=== PATIENT | female | born 1965 | race Caucasian/White ===

== ENCOUNTER 2023-07-27 06:01 | Observation (INO) | payer BC ==
--- NOTE | 2023-07-27 06:23 | ED ---
General Adult HPI - General Chief complaint: Chest Pain Stated complaint: SOB, Chest Pain, Headache Time Seen by Provider: 07/27/23 06:06 Source: patient, RN notes reviewed Mode of arrival: ambulatory Limitations: no limitations - History of Present Illness Initial comments: 58-year-old female presents emergency room with complaint of headache, chest claudia n, shortness of breath. Patient states started yesterday afternoon with mild headache folic she had some sinus pressure and congestion she tried some Claritin-D with no relief of her symptoms. Patient states she woke this morning she still has centralized chest pain substernal states that her take a deep breath. She has no prior cardiac or lung disease denies recent fever chills cough nausea vomiting. Denies any leg pain no leg swelling no recent traveling - Related Data Home Medications Medication Instructions Recorded Confirmed Loratadine-Pseudoeph 10-240 mg 1 tab PO DAILY PRN 07/27/23 07/27/23 [Claritin-D 24 Hour] Multivitamins, Thera [Multivitamin 1 tab PO DAILY 07/27/23 07/27/23 (formulary)] Allergies Allergy/AdvReac Type Severity Reaction Status Date / Time Penicillins Allergy Swelling Verified 07/27/23 09:41 Review of Systems ROS Statement: Those systems with pertinent positive or pertinent negative responses have been documented in the HPI. ROS Other: All systems not noted in ROS Statement are negative. Past Medical History Past Medical History: No Reported History History of Any Multi-Drug Resistant Organisms: None Reported Past Surgical History: No Surgical Hx Reported Past Psychological History: No Psychological Hx Reported Smoking Status: Never smoker Past Alcohol Use History: Occasional Past Drug Use History: None Reported General Exam Limitations: no limitations General appearance: alert, in no apparent distress Head exam: Present: atraumatic, normocephalic, normal inspection ENT exam: Present: normal exam, mucous membranes moist Neck exam: Present: normal inspection. Absent: tenderness, meningismus, lymphadenopathy Respiratory exam: Present: normal lung sounds bilaterally. Absent: respiratory distress, wheezes, rales, rhonchi, stridor Cardiovascular Exam: Present: regular rate, normal rhythm, normal heart sounds. Absent: systolic murmur, diastolic murmur, rubs, gallop, clicks GI/Abdominal exam: Present: soft, normal bowel sounds. Absent: distended, tenderness, guarding, rebound, rigid Extremities exam: Present: pedal edema, other (Lower extremity pulses equal bilaterally) Course Vital Signs 07/27/23 07/27/23 07/27/23 06:02 09:00 10:14 Temperature 97.9 F Pulse Rate 58 L 95 87 Respiratory 18 16 14 Rate Blood Pressure 142/70 124/56 135/94 O2 Sat by Pulse 96 99 98 Oximetry 07/27/23 07/27/23 07/27/23 11:23 12:21 13:30 Temperature Pulse Rate 88 89 89 Respiratory 14 16 16 Rate Blood Pressure 140/73 127/65 134/64 O2 Sat by Pulse 97 97 95 Oximetry 07/27/23 07/27/23 07/27/23 14:33 17:24 17:29 Temperature 98.1 F Pulse Rate 90 87 79 Respiratory 18 16 16 Rate Blood Pressure 113/69 134/72 123/71 O2 Sat by Pulse 96 98 98 Oximetry EKG Findings - EKG Comments: EKG Findings:: EKG performed at 6: 08 sinus tachycardia rate of 103 GA 143 QRS 80 QT/QTc 326/386 - EKG Results: EKG: interpreted by FABIANA Medical Decision Making - Medical Decision Making Was pt. sent in by a medical professional or institution (, PA, PROMOTIONS DIRECTOR, urgent care, hospital, or detention...) When possible be specific @ -No Did you speak to anyone other than the patient for history (EMS, parent, family, police, friend...)? What history was obtained from this source @ -No Did you review nursing and triage notes (agree or disagree)? Why? @ -I reviewed and agree with nursing and triage notes Were old charts reviewed (outside hosp., previous admission, EMS record, old EKG, old radiological studies, urgent care reports/EKG's, detention records)? Report findings @ -No old charts were reviewed Differential Diagnosis (chest pain, altered mental status, abdominal pain women, abdominal pain men, vaginal bleeding, weakness, fever, dyspnea, syncope, headache, dizziness, GI bleed, back pain, seizure, CVA, palpatations, mental health, musculoskeletal)? @ -Differential Chest Pain: Stable Angina, Unstable Angina, STEMI, NSTEMI Aortic Dissection, Pneumothorax, Musculoskeletal, Esophageal Spasm GERD, Cholecystitis, Pancreatitis, Zoster, this is not meant to be an all-inclusive list. EKG interpreted by me (3pts min.). @ -As above X-rays interpreted by me (1pt min.). @ -Chest x-ray shows no acute cardiopulmonary process CT interpreted by me (1pt min.). @ -None done U/S interpreted by me (1pt. min.). @ -None done What testing was considered but not performed or refused? (CT, X-rays, U/S, labs )? Why? @ -None What meds were considered but not given or refused? Why? @ -None Did you discuss the management of the patient with other professionals (professionals i.e. , PA, PROMOTIONS DIRECTOR, lab, RT, psych nurse, director social welfare, retail area manager, teacher, special skills officer, shelter case manager)? Give summary @ -Dr. Wall for admission with consults with cardiology, echocardiogram Was smoking cessation discussed for >3mins.? @ -No Was critical care preformed (if so, how long)? @ -No Were there social determinants of health that impacted care today? How? (Homelessness, low income, unemployed, alcoholism, drug addiction, transportation, low edu. Level, literacy, decrease access to med. care, snf, rehab)? @ -No Was there de-escalation of care discussed even if they declined (Discuss DNR or withdrawal of care, Hospice)? DNR status @ -No What co-morbidities impacted this encounter? (DM, HTN, Smoking, COPD, CAD, Cance r, CVA, ARF, Chemo, Hep., AIDS, mental health diagnosis, sleep apnea, morbid obesity)? @ -None Was patient admitted / discharged? Hospital course, mention meds given and route, prescriptions, significant lab abnormalities, going to OR and other pertinent info. @ -[Admitted patient presented for chest pain concerning for underlying ACS. Patient was admitted, first Trope was negative patient had echocardiogram ordered. Patient will have repeat troponin, cardiology evaluation Undiagnosed new problem with uncertain prognosis? @ -No Drug Therapy requiring intensive monitoring for toxicity (Heparin, Nitro, Insulin, Cardizem)? @ -No Were any procedures done? @ -No Diagnosis/symptom? @ -Chest pain Acute, or Chronic, or Acute on Chronic? @ -Acute Uncomplicated (without systemic symptoms) or Complicated (systemic symptoms)? @ -complicated Side effects of treatment? @ -No Exacerbation, Progression, or Severe Exacerbation? @ -No Poses a threat to life or bodily function? How? (Chest pain, USA, IA, pneumonia, PE, COPD, DKA, ARF, appy, cholecystitis, CVA, Diverticulitis, Homicidal, Suicidal, threat to staff... and all critical care pts) @ -Yes possible ACS, cardiac arrest - Lab Data Result diagrams: 07/27/23 06:29 07/27/23 06:29 Lab Results 07/27/23 07/27/23 07/27/23 Range/Units 06:29 06:29 06:29 WBC 7.0 (3.8-10.6) k/uL RBC 4.16 (3.80-5.40) m/uL Hgb 12.4 (11.4-16.0) gm/dL Hct 39.6 (34.0-46.0) % MCV 95.3 (80.0-100.0) fL MCH 29.8 (25.0-35.0) pg MCHC 31.3 (31.0-37.0) g/dL RDW 12.2 (11.5-15.5) % Plt Count 202 (150-450) k/uL MPV 7.9 Neutrophils % 76 % Lymphocytes % 12 % Monocytes % 7 % Eosinophils % 4 % Basophils % 0 % Neutrophils # 5.3 (1.3-7.7) k/uL Lymphocytes # 0.8 L (1.0-4.8) k/uL Monocytes # 0.5 (0-1.0) k/uL Eosinophils # 0.3 (0-0.7) k/uL Basophils # 0.0 (0-0.2) k/uL PT 10.3 (10.0-12.5) sec INR 0.9 (<1.2) APTT 23.7 (22.0-30.0) sec D-Dimer 0.24 (<0.60) mg/L FEU Sodium 139 (137-145) mmol/L Potassium 4.0 (3.5-5.1) mmol/L Chloride 109 H (98-107) mmol/L Carbon Dioxide 21 L (22-30) mmol/L Anion Gap 9 mmol/L BUN 19 H (7-17) mg/dL Creatinine 0.54 (0.52-1.04) mg/dL Est GFR (CKD-EPI)AfAm >90 (>60 ml/min/1.73 sqM) Est GFR (CKD-EPI)NonAf >90 (>60 ml/min/1.73 sqM) Glucose 139 H (74-99) mg/dL Calcium 9.1 (8.4-10.2) mg/dL Magnesium 2.0 (1.6-2.3) mg/dL Total Bilirubin 1.3 (0.2-1.3) mg/dL AST 28 (14-36) U/L ALT 21 (4-34) U/L Alkaline Phosphatase 64 (38-126) U/L Troponin I (0.000-0.034) ng/mL Total Protein 6.9 (6.3-8.2) g/dL Albumin 4.4 (3.5-5.0) g/dL 07/27/23 Range/Units 06:29 WBC (3.8-10.6) k/uL RBC (3.80-5.40) m/uL Hgb (11.4-16.0) gm/dL Hct (34.0-46.0) % MCV (80.0-100.0) fL MCH (25.0-35.0) pg MCHC (31.0-37.0) g/dL RDW (11.5-15.5) % Plt Count (150-450) k/uL MPV Neutrophils % % Lymphocytes % % Monocytes % % Eosinophils % % Basophils % % Neutrophils # (1.3-7.7) k/uL Lymphocytes # (1.0-4.8) k/uL Monocytes # (0-1.0) k/uL Eosinophils # (0-0.7) k/uL Basophils # (0-0.2) k/uL PT (10.0-12.5) sec INR (<1.2) APTT (22.0-30.0) sec D-Dimer (<0.60) mg/L FEU Sodium (137-145) mmol/L Potassium (3.5-5.1) mmol/L Chloride (98-107) mmol/L Carbon Dioxide (22-30) mmol/L Anion Gap mmol/L BUN (7-17) mg/dL Creatinine (0.52-1.04) mg/dL Est GFR (CKD-EPI)AfAm (>60 ml/min/1.73 sqM) Est GFR (CKD-EPI)NonAf (>60 ml/min/1.73 sqM) Glucose (74-99) mg/dL Calcium (8.4-10.2) mg/dL Magnesium (1.6-2.3) mg/dL Total Bilirubin (0.2-1.3) mg/dL AST (14-36) U/L ALT (4-34) U/L Alkaline Phosphatase (38-126) U/L Troponin I <0.012 (0.000-0.034) ng/mL Total Protein (6.3-8.2) g/dL Albumin (3.5-5.0) g/dL Disposition Clinical Impression: Chest pain Disposition: ADMITTED IP TO THIS HOSP Condition: Fair Time of Disposition: 09:48
[2023-07-27 06:39] LABS: Basophils % (A) 0 %; Eosinophils # (A) 0.3 k/uL (0-0.7); Eosinophils % (A) 4 %; HCT 39.6 % (34.0-46.0); HGB 12.4 gm/dL (11.4-16.0); Lymphocytes # (A) 0.8 k/uL (1.0-4.8); Lymphocytes % (A) 12 %; MCH 29.8 pg (25.0-35.0); MCHC 31.3 g/dL (31.0-37.0); MCV 95.3 fL (80.0-100.0); Mean Platelet Volume 7.9; Monocytes # (A) 0.5 k/uL (0-1.0); Monocytes % (A) 7 %; Neutrophils # (A) 5.3 k/uL (1.3-7.7); Neutrophils % (A) 76 %; Platelet Count 202 k/uL (150-450); RBC 4.16 m/uL (3.80-5.40); RDW 12.2 % (11.5-15.5)
[2023-07-27 06:52] LABS: ALT 21 U/L (4-34); AST 28 U/L (14-36); African American GFR (CKD) >90 (>60 ml/min/1.73 sqM); Albumin 4.4 g/dL (3.5-5.0); Alkaline Phosphatase 64 U/L (38-126); Anion Gap 9 mmol/L; Blood Urea Nitrogen 19 mg/dL (7-17); Calcium 9.1 mg/dL (8.4-10.2); Carbon Dioxide 21 mmol/L (22-30); Chloride 109 mmol/L (98-107); Glucose 139 mg/dL (74-99); Non-African American GFR(CKD) >90 (>60 ml/min/1.73 sqM); Sodium 139 mmol/L (137-145); Total Bilirubin 1.3 mg/dL (0.2-1.3); Total Protein 6.9 g/dL (6.3-8.2)
[2023-07-27 06:56] LABS: INR 0.9 (<1.2); Partial Thromboplastin Time 23.7 sec (22.0-30.0); Prothrombin Time 10.3 sec (10.0-12.5)
[2023-07-27] MEDS: KETOROLAC 15 MG/ML 1 ML VIAL IVP STA (07:02)
[2023-07-27] MEDS ORDERED: NITROGLYCERIN SL TABS 0.4 MG TAB SUBLINGUAL PRN (09:44)
[2023-07-27] MEDS: ASPIRIN 81 MG PO STA (10:11)
--- NOTE | 2023-07-27 10:18 | XR ---
EXAMINATION TYPE: XR chest 2V DATE OF EXAM: 07/27/2023 6:43 AM CLINICAL INDICATION:Female, 58 years old with history of Chest Pain; COMPARISON: None TECHNIQUE: XR chest 2V Frontal and lateral views of the chest. FINDINGS: Lungs/Pleura: There is no evidence of pleural effusion, focal consolidation, or pneumothorax. Pulmonary vascularity: Unremarkable. Heart/mediastinum: Cardiomediastinal silhouette is unremarkable. Musculoskeletal: No acute osseous pathology. IMPRESSION: 1. No acute cardiopulmonary disease process. 2. COPD changes.
--- NOTE | 2023-07-27 12:17 | P.CRDCN ---
History of Present Illness History of present illness: HISTORY OF PRESENT ILLNESS: This is a 58-year-old female with no significant past medical history. Patient does not follow with a pharmacy operations coordinator. We have been asked to see the patient in co nsultation for chest pain. Patient examined at the bedside in the emergency room. Patient presented to the hospital with a chief complaint of chest pain. Patient states she has been having pain in the middle of her chest. She states the pain is worse with deep inspiration. She also reports the pain is worse when she bends over. She reports having a headache as well. She denies any shortness of breath. Denies any fever or cough. She denies a history of hypertension, hyperlipidemia, or diabetes. She is a non-smoker. She does report a family history of CAD in her father. DIAGNOSTICS: - EKG reveals mechanism with no signs of acute ischemia. - Chest xray negative for acute process. - Laboratory data: WBC 7.0. Hemoglobin 12.4. Platelet count 202. D-dimer 0.24. Sodium 139. Potassium 4.0. BUN 19. Creatinine 0.54. Magnesium 2.0. Troponin negative x 2 - Current home cardiac medications include: None REVIEW OF SYSTEMS: At the time of my exam: CONSTITUTIONAL: Denies fever or chills. HEENT: Denies blurred vision, vision changes, or eye pain. Denies hemoptysis CARDIOVASCULAR: Denies chest pain. Denies orthopnea. Denies PND. Denies palpitations RESPIRATORY: Denies shortness of breath. GASTROINTESTINAL: Denies abdominal pain. Denies nausea or vomiting. HEMATOLOGIC: Denies bleeding disorders. GENITOURINARY: Denies any blood in urine. SKIN: Denies pruitis. Denies rash. PHYSICAL EXAM: VITAL SIGNS: Reviewed. GENERAL: Well-developed in no acute distress. HEENT: Head is normocephalic. Pupils are equal, round. Sclerae anicteric. Mucous membranes of the mouth are moist. Neck supple. No JVD or thyromegaly LUNGS: Respirations even and unlabored. Lungs essentially clear to auscultation bilaterally. HEART: Regular rate and rhythm. S1 and S2 heard. ABDOMEN: Soft. Nondistended. Nontender. EXTREMITIES: Normal range of motion. No clubbing or cyanosis. Peripheral pulse s intact. No lower extremity edema NEUROLOGIC: Awake and alert. Oriented x 3. ASSESSMENT: Chest pain, troponin negative x 2 Family history of CAD PLAN: An acute coronary event has been ruled out Obtain 2D echo to assess cardiac structure and function Patient to undergo stress testing today If negative, she may be discharged home from a cardiac standpoint Further recommendations pending patient course Nurse practitioner note has been reviewed by physician. Signing provider agrees with the documented findings, assessment, and plan of care documented by METALS ANALYST as a scribe. Past Medical History Past Medical History: No Reported History History of Any Multi-Drug Resistant Organisms: None Reported Past Surgical History: No Surgical Hx Reported Past Psychological History: No Psychological Hx Reported Smoking Status: Never smoker Past Alcohol Use History: Occasional Past Drug Use History: None Reported Medications and Allergies Home Medications Medication Instructions Recorded Confirmed Type Loratadine-Pseudoeph 10-240 mg 1 tab PO DAILY PRN 07/27/23 07/27/23 History [Claritin-D 24 Hour] Multivitamins, Thera [Multivitamin 1 tab PO DAILY 07/27/23 07/27/23 History (formulary)] Allergies Allergy/AdvReac Type Severity Reaction Status Date / Time Penicillins Allergy Swelling Verified 07/27/23 09:41 Physical Exam Vitals: Vital Signs Temp Pulse Resp BP Pulse Ox 07/27/23 10:14 87 14 135/94 98 07/27/23 09:00 95 16 124/56 99 07/27/23 06:02 97.9 F 58 L 18 142/70 96 Intake and Output 07/26/23 07/27/23 07/27/23 22:59 06:59 14:59 Other: Weight 65.771 kg Results 07/27/23 06:29 07/27/23 06:29 Cardiac Enzymes 07/27/23 07/27/23 Range/Units 06:29 06:29 AST 28 (14-36) U/L Troponin I <0.012 (0.000-0.034) ng/mL Coagulation 07/27/23 Range/Units 06:29 PT 10.3 (10.0-12.5) sec APTT 23.7 (22.0-30.0) sec CBC 07/27/23 Range/Units 06:29 WBC 7.0 (3.8-10.6) k/uL RBC 4.16 (3.80-5.40) m/uL Hgb 12.4 (11.4-16.0) gm/dL Hct 39.6 (34.0-46.0) % Plt Count 202 (150-450) k/uL Comprehensive Metabolic Panel 07/27/23 Range/Units 06:29 Sodium 139 (137-145) mmol/L Potassium 4.0 (3.5-5.1) mmol/L Chloride 109 H (98-107) mmol/L Carbon Dioxide 21 L (22-30) mmol/L BUN 19 H (7-17) mg/dL Creatinine 0.54 (0.52-1.04) mg/dL Glucose 139 H (74-99) mg/dL Calcium 9.1 (8.4-10.2) mg/dL AST 28 (14-36) U/L ALT 21 (4-34) U/L Alkaline Phosphatase 64 (38-126) U/L Total Protein 6.9 (6.3-8.2) g/dL Albumin 4.4 (3.5-5.0) g/dL Current Medications Generic Name Dose Route Start Last Admin Trade Name Freq PRN Reason Stop Dose Admin Aspirin 325 mg 07/28/23 09:00 Aspirin 325 Mg Tab PO DAILY JUANPABLO Nitroglycerin 0.4 mg 07/27/23 09:44 Nitroglycerin Sl Tabs 0.4 Mg Tab SUBLINGUAL Q5M PRN Chest Pain Intake and Output 07/26/23 07/27/23 07/27/23 22:59 06:59 14:59 Other: Weight 65.771 kg 07/27/23 06:29 07/27/23 06:29
[2023-07-27 17:24] VITALS: RESP 16
--- NOTE | 2023-07-27 18:26 | CA ---
Exercise Stress Test Report Name: Tammy Gan Exam Date: 07/27/2023 13:27 Exam Location: [place] Stress Ht (in): 63 Wt (lb): 145 BSA: 1.69 Ordering Phys: Kristin Mauricio Referring Phys: HEATHER Technologist: Norberto Quesada Age: 58 Gender: F : 1965 Procedure CPT: Indications: CP ICD-10 Codes: Patient History: CHEST PRESSURE, PALPITATIONS, FAMILY HX (DAD) Medications: Meds past 24 hrs: Pretest Chest Pain: STRESS TEST [place] Protocol Exercise Duration (min:sec): 04:[address] Depressions (mm): Angina Score: Stone Score: Resting HR (bpm): 104 Peak HR (bpm): 147 Resting BP (mmHg): 137 / 82 Peak BP (mmHg): 148 / 65 MPHR: 161 Target HR: 137 % MPHR: 91 METS: 6.5 Total Dose: Peak Dose: Atropine: Double Product: 48246 BP Response: Stress Termination: Fatigue,TARGET HR REACHED/MAX EXERTION Stress Symptoms: FATIGUE,DIFFICULTY IN BREATHING Stress Summary: ECG ANALYSIS Resting ECG: Stress ECG: CONCLUSIONS Excellent exercise tolerance Normal electrocardiogram in response to exercise Dr. Ernesto Collier MD (Electronically Signed) Final Date: 27 July 2023 18:25
[2023-07-27 18:28] VITALS: BP 133/61; PULSE 66; TEMP 98.9
--- NOTE | 2023-07-27 18:51 | CA ---
Transthoracic Echo Report Name: Tammy Gan Age: 58 Gender: F : 1965 Exam Date: 07/27/2023 15:07 Exam Location: [facility] Echo Ht (in): 63 Wt (lb): 145 Ordering Physician: Cory Verdugo PAC Attending/Referring Phys: SHERI, Kartik Contact Finger Assembler Mikaela Membreno RDCS Procedure CPT: Indications: Chest Pain Cardiac Hx: Technical Quality: Fair Contrast 1: Total Dose (mL): Contrast 2: Total Dose (mL): MEASUREMENTS (Male / Female) Normal Values 2D ECHO LV Diastolic Diameter PLAX 3.5 cm 4.2 - 5.9 / 3.9 - 5.3 cm LV Systolic Diameter PLAX 2.6 cm IVS Diastolic Thickness 1.0 cm 0.6 - 1.0 / 0.6 - 0.9 cm LVPW Diastolic Thickness 1.1 cm 0.6 - 1.0 / 0.6 - 0.9 cm LV Relative Wall Thickness 0.6 RV Internal Dim ED PLAX 1.6 cm LV Diastolic Volume MOD BP 60.1 cm??? 67 - 155 / 56 - 104 cm??? LV Systolic Volume MOD BP 23.3 cm??? 22 - 58 / 19 - 49 cm??? LV Ejection Fraction MOD BP 61.2 % >= 55 % LV Cardiac Index MOD BP 1834.4 cm???/min???m??? LV Diastolic Volume MOD 4C 61.8 cm??? LV Systolic Volume MOD 4C 21.8 cm??? LV Ejection Fraction MOD 4C 64.8 % LV Cardiac Index MOD 4C 1998.9 cm???/min???m??? LV Diastolic Length 4C 6.2 cm LV Systolic Length 4C 4.5 cm LV Diastolic Volume MOD 2C 56.1 cm??? LV Systolic Volume MOD 2C 22.0 cm??? LV Ejection Fraction MOD 2C 60.8 % LV Cardiac Index MOD 2C 1702.3 cm???/min???m??? LV Diastolic Length 2C 6.5 cm LV Systolic Length 2C 5.1 cm M-MODE Aortic Root Diameter MM 2.1 cm LA Systolic Diameter MM 2.7 cm LA Ao Ratio MM 1.3 AV Cusp Separation MM 1.3 cm DOPPLER AV Peak Velocity 159.2 cm/s AV Peak Gradient 10.1 mmHg MV Area PHT 3.6 cm??? Mitral E Point Velocity 75.0 cm/s Mitral A Point Velocity 83.6 cm/s Mitral E to A Ratio 0.9 MV Deceleration Time 207.9 ms TR Peak Velocity 209.9 cm/s TR Peak Gradient 17.6 mmHg FINDINGS Left Ventricle Left ventricular ejection fraction is estimated at 55-60 %. Mildly increased septal wall thickness. Mildly increased posterior wall thickness. No obvious regional wall motion abnormalities. Left ventricular cavity size normal. Right Ventricle Normal right ventricular size and function. Right ventricular systolic pressure within normal limits. Right Atrium Normal right atrial size. Left Atrium Normal left atrial size. Mitral Valve Structurally normal mitral valve. Trace mitral regurgitation. Aortic Valve Visualized aortic valve. Diffuse thickening (sclerosis) of the aortic valve cusps without reduced excursion. No aortic stenosis. No aortic regurgitation. Tricuspid Valve Structurally normal tricuspid valve. Trace to mild tricuspid regurgitation. Pulmonic Valve Structurally normal pulmonic valve. No pulmonic regurgitation. Trace pulmonic regurgitation. Pericardium No pericardial or pleural effusion. Aorta Normal size aortic root and proximal ascending aorta. CONCLUSIONS Normal LV systolic function Poorly visualized aortic valve. Cannot exclude bicuspid aortic valve Previewed by: Dr. Ernesto Collier MD (Electronically Signed) Final Date: 27 July 2023 18:50
--- NOTE | 2023-07-27 19:43 | P.HPIM ---
History of Present Illness H&P Date: 07/27/23 Chief Complaint: Chest pressure Very pleasant 58-year-old patient, follows with Dr. Shira Mathew. And rather normally good health. No chronic medical conditions. Yesterday around 4:30 PM she started having rather severe headache in the right front part of the head lasted several hours. No nausea vomiting. No flashing lights. No change in vision. No weakness of any limbs. Patient for last 2 weeks has been somewhat stressed out because of work issues and not sleeping very well. Often waking up early. Also later noticed some chest pressure with the same. No radiation. Decided to come in. Otherwise fairly active with no prior cardiac history. Patient did receive some Toradol this morning in the ER and pain completely resolved. Review of systems: GEN.: None EYES: None HEENT: As above e NECK: None RESPIRATORY: None CARDIOVASCULAR: [As above GASTROINTESTINAL: None GENITOURINARY: None MUSCULOSKELETAL: None LYMPHATICS: None HEMATOLOGICAL: None PSYCHIATRY: Anxious NEUROLOGICAL: None Social history: Does a desk job. No smoking alcohol. . Physical examination: VITAL SIGNS: Afebrile, 95, 16, 120/56, 89% room air GENERAL: BMI 25.7, sitting up in chair awake comfortable. EYES: Pupils equal. Conjunctiva timo l. HEENT: External appearance of nose and ears normal, oral cavity grossly normal. No tenderness over the right scalp in the frontal/lateral area NECK: JVD not raised; masses not palpable. HEART: First and second heart sounds are normal; no edema. LUNGS: Respiratory rate normal; clear to auscultation. ABDOMEN: Soft, nontender, liver spleen not palpable, no masses palpable. PSYCH: Alert and oriented x3; mood and affect timo l. MUSCULOSKELETAL:No Clubbing/cyanosis;muscles-grossly intact NEUROLOGICAL: Cranial nerves grossly intact; no facial asymmetry, power and sensation grossly intact. INVESTIGATIONS, reviewed in the clinical context: July 26: White count 7 hemoglobin 12.4 platelets 202 sodium 139 potassium 4 creatinine 0.54 Troponin I less than 0.012 EKG tracing personally reviewed by me-sinus tachycardia. Rate 103 Chest x-ray film personally reviewed by me-clear Assessment plan: -Anterior chest wall pain. Could be stress related. Rule out cardiac cause. EKG unremarkable. Troponins negative. Cardiology consulted 2D echo and stress test ordered -Insomnia recently from work at stress May take melatonin as needed -Social stressors from work related pressure -Cephalgia acute likely tension headache from lack of sleep and tension no other associate symptoms. Resolved with Toradol. Care was discussed with the patient. Await results LYMPHATICS: No lymph nodes palpable in the axilla and neck Past Medical History Past Medical History: No Reported History History of Any Multi-Drug Resistant Organisms: None Reported Past Surgical History: No Surgical Hx Reported Past Psychological History: No Psychological Hx Reported Smoking Status: Never smoker Past Alcohol Use History: Occasional Past Drug Use History: None Reported Medications and Allergies Home Medications Medication Instructions Recorded Confirmed Type Loratadine-Pseudoeph 10-240 mg 1 tab PO DAILY PRN 07/27/23 07/27/23 History [Claritin-D 24 Hour] Multivitamins, Thera [Multivitamin 1 tab PO DAILY 07/27/23 07/27/23 History (formulary)] Allergies Allergy/AdvReac Type Severity Reaction Status Date / Time Penicillins Allergy Swelling Verified 07/27/23 09:41 Physical Exam Vitals: Vital Signs Temp Pulse Resp BP Pulse Ox 07/27/23 10:14 87 14 135/94 98 07/27/23 09:00 95 16 124/56 99 07/27/23 06:02 97.9 F 58 L 18 142/70 96 Intake and Output 07/26/23 07/27/23 07/27/23 22:59 06:59 14:59 Other: Weight 65.771 kg Results CBC & Chem 7: 07/27/23 06:29 07/27/23 06:29 Labs: Abnormal Lab Results - Last 24 Hours (Table) 07/27/23 07/27/23 Range/Units 06:29 06:29 Lymphocytes # 0.8 L (1.0-4.8) k/uL Chloride 109 H (98-107) mmol/L Carbon Dioxide 21 L (22-30) mmol/L BUN 19 H (7-17) mg/dL Glucose 139 H (74-99) mg/dL
--- NOTE | 2023-07-27 21:23 | P.DS ---
Providers Date of admission: 07/27/23 09:41 Expected date of discharge: 07/27/23 Attending physician: Naveen Wall Consults: 07/27/23 09:44 Consult Physician Urgent Consulting Provider: Ernesto Collier Consult Reason/Comments: chest pain Do you want consulting provider notified?: Yes Primary care physician: Shira Mathew MD Hospital Course: Chief Complaint: Chest pressure Very pleasant 58-year-old patient, follows with Dr. Shira Mathew. And rather normally good health. No chronic medical conditions. Yesterday around 4:30 PM she started having rather severe headache in the right front part of the head lasted several hours. No nausea vomiting. No flashing lights. No change in vision. No weakness of any limbs. Patient for last 2 weeks has been somewhat stressed out because of work issues and not sleeping very well. Often waking up early. Also later noticed some chest pressure with the same. No radiation. Decided to come in. Otherwise fairly active with no prior cardiac history. Patient did receive some Toradol this morning in the ER and pain completely resolved. Limited 2D echocardiogram and stress test came back negative. Patient's symptoms are felt to be from stress headache from lack of sleep and stress at work Social history: Does a desk job. No smoking alcohol. . Physical examination: VITAL SIGNS: Afebrile, 95, 16, 120/56, 89% room air GENERAL: BMI 25.7, sitting up in chair awake comfortable. EYES: Pupils equal. Conjunctiva timo l. HEENT: External appearance of nose and ears normal, oral cavity grossly normal. No tenderness over the right scalp in the frontal/lateral area NECK: JVD not raised; masses not palpable. HEART: First and second heart sounds are normal; no edema. LUNGS: Respiratory rate normal; clear to auscultation. ABDOMEN: Soft, nontender, liver spleen not palpable, no masses palpable. PSYCH: Alert and oriented x3; mood and affect timo l. MUSCULOSKELETAL:No Clubbing/cyanosis;muscles-grossly intact NEUROLOGICAL: Cranial nerves grossly intact; no facial asymmetry, power and sensation grossly intact. INVESTIGATIONS, reviewed in the clinical context: July 26: White count 7 hemoglobin 12.4 platelets 202 sodium 139 potassium 4 creatinine 0.54 Troponin I less than 0.012 EKG tracing personally reviewed by vt-sinus tachycardia. Rate 103 Chest x-ray film personally reviewed by me-clear Assessment plan: -Anterior chest wall pain. Could be stress related. Rule out cardiac cause. EKG unremarkable. Troponins negative. echo and stress test negative Follow-up with Dr. Collier outpatient -Insomnia recently from work at stress May take melatonin as needed -Social stressors from work related pressure -Cephalgia acute likely tension headache from lack of sleep and tension no other associate symptoms. Resolved with Toradol. Care was discussed with the patient. Await results Position: Home Patient Condition at Discharge: Fair Plan - Discharge Summary Discharge Rx Participant: Yes New Discharge Prescriptions: Continue Loratadine-Pseudoeph 10-240 mg [Claritin-D 24 Hour] 1 tab PO DAILY PRN PRN Reason: Congestion Multivitamins, Thera [Multivitamin (formulary)] 1 tab PO DAILY Discharge Medication List Loratadine-Pseudoeph 10-240 mg [Claritin-D 24 Hour] 1 tab PO DAILY PRN 07/27/23 [History] Multivitamins, Thera [Multivitamin (formulary)] 1 tab PO DAILY 07/27/23 [History] Follow up Appointment(s)/Referral(s): Ernesto Collier MD [STAFF PHYSICIAN] - 4 Weeks Shira Mathew MD [Primary Care Provider] - 1 Week Patient Instructions/Handouts: Chest Pain (DC)
[2023-07-28] MEDS ORDERED: ASPIRIN 325 MG TAB PO SCH (09:00)
[2023-07-28] MEDS ORDERED: ASPIRIN 81 MG PO SCH (09:00)
== END 2023-07-27 20:18 | disposition home or self-care (01) ==
LOC: EC 06:01 → 6NMEDSUR 09:41
PROVIDERS: ADMIT Hospitalist; ATTEND Hospitalist
DX: R07.89 Other chest pain (principal); R51.9 Headache, unspecified; G47.00 Insomnia, unspecified; F43.9 Reaction to severe stress, unspecified; R00.0 Tachycardia, unspecified; R06.02 Shortness of breath; Z56.6 Other physical and mental strain related to work; Z88.0 Allergy status to penicillin; Z82.49 Family history of ischemic heart disease and other diseases of the circulatory system
CPT/HCPCS: 96374; 99285; 36415; 93005; 93017; 93306; 85379; 80053; 83735; 84484; 85025; 85610; 85730; 71046; G0378; J1885